=== PATIENT | female | born 1985 | race Caucasian/White ===

== ENCOUNTER 2016-08-22 08:35 | Emergency (ER) | payer BC, OTHER ==
[2016-08-22 08:40] VITALS: BP 120/66; PULSE 90; TEMP 98.8; BMI 22.4
--- NOTE | 2016-08-22 08:56 | PDOC ---
History of Present Illness - General History Source: Patient Exam Limitations: No Limitations - History of Present Illness Initial Comments: CHIEF COMPLAINT: 30 y/o afebrile female with no significant PMH c/o left upper back pain that started at the gym yesterday. HISTORY OF PRESENT ILLNESS: The patient states the pain started while she was on the stair master. She does admit that she works out 6 times per week. She was not lifting weights yesterday. She thought it was gas. She states the pain is worse with deep inspiration. She has not taken anything for the pain. She denies f/c, cough, hemoptysis, n/v/d, SOB, abd pain, low back pain, dizziness, smoking history, recent travel, control use, calf pain, trauma to back. Vital signs on arrival are within normal limits. REVIEW OF SYSTEMS: GENERAL/CONSTITUTIONAL: No fever/chills. No weakness. No weight change. HEAD, EYES, EARS, NOSE AND THROAT: No change in vision. No ear pain or discharge. No sore throat. CARDIOVASCULAR: No chest pain or shortness of breath. RESPIRATORY: No cough, wheezing, or hemoptysis. GASTROINTESTINAL: No abd pain, nausea, vomiting, diarrhea. GENITOURINARY: No dysuria, frequency, or change in urination. MUSCULOSKELETAL: No joint or muscle swelling or pain. No neck pain. +left upper back pain with deep inspiration. SKIN: No rash or easy bruising. PHYSICAL EXAM: GENERAL: The patient is awake, alert, and fully oriented, in no acute distress. She is very well appearing, ambulatory, in NAD or obvious discomfort. HEAD: Normal with no signs of trauma. ENT: Pupils equal, round and reactive to light, extraocular movements intact, sclera anicteric, conjunctiva clear. Neck supple. LUNGS: Clear to auscultation bilaterally. Normal excursion. No respiratory distress or use of accessory muscles. CV: RRR, S1/S2, no MRG. Cap refill < 2 sec. CHEST WALL: Reproducible pain with palpation of left posterior thoracic area at level of T6-7. The patient jumps off the bed when I touch that area. No crepitus, deformities or flail chest. ABDOMEN: Soft, non-distended, non-tender even to deep palpation, no hepatomegaly or splenomegaly, no masses. EXTREMITIES: Normal range of motion, no edema. NEUROLOGICAL: Normal speech, normal gait. CN II-XII grossly intact. PSYCH: Normal mood, normal affect. SKIN: Warm, dry, normal turgor, no rashes or lesions noted. <Viv Chaparro - Last Filed: 08/22/16 16:24> <Max Clancy - Last Filed: 08/23/16 09:51> - General Chief Complaint: Pain Stated Complaint: BACK PAIN, SOB Time Seen by Provider: 08/22/16 08:54 Past History - Past Medical History Other medical history: NONE - Psycho/Social/Smoking Cessation Hx Anxiety: No Suicidal Ideation: No Smoking History: Never smoked Hx Alcohol Use: Yes (SOCIAL) Drug/Substance Use Hx: No <Viv Chaparro - Last Filed: 08/22/16 16:24> <Max Clancy - Last Filed: 08/23/16 09:51> - Past Medical History Allergies/Adverse Reactions: Allergies Allergy/AdvReac Type Severity Reaction Status Date / Time No Known Allergies Allergy Verified 08/22/16 08:40 Home Medications: Ambulatory Orders NK [No Known Home Medication] 08/22/16 *Physical Exam - Vital Signs Last Vital Signs Temp Pulse Resp BP Pulse Ox 98.8 F 90 20 120/66 100 08/22/16 08:37 08/22/16 08:37 08/22/16 08:37 08/22/16 08:37 08/22/16 08:37 <Viv Chaparro - Last Filed: 08/22/16 16:24> - Vital Signs Last Vital Signs Temp Pulse Resp BP Pulse Ox 98.8 F 90 20 120/66 100 08/22/16 08:37 08/22/16 08:37 08/22/16 08:37 08/22/16 08:37 08/22/16 08:37 <Max Clancy - Last Filed: 08/23/16 09:51> Medical Decision Making - Medical Decision Making A/P: 30 y/o afebrile female with costochondritis. Plan is as follows: 1. hcg 2. CXR 3. Toradol Very low suspicion for PE as the patient is not tachycardic, not hypoxic and has no risk factors - she is not on control, has had no recent travel and does not smoke. The patient decided she does not want to wait for results and would like to sign out AMA. The patient ambulates without difficulty out of the emergency department. She is alert and oriented and of sound decision making capacity. She leaves AGAINST MEDICAL ADVICE. AMA-AGAINST MEDICAL ADVICE The patient is a 30-year-old female who wants to leave the [facility] Emergency Department before assessment, diagnosis and treatment are completed. The patient has been counseled in regard to the benefits of remaining for treatment and the risks of leaving before medical evaluation and care are provided. These risks are many and include failure to diagnose the condition, failure to provide needed treatment, and a failure to obtain needed specialty care as required. The patient has been informed that failure to complete needed diagnosis and treatment may result in pain, worsening of any medical conditions, possible permanent disability, and . Despite receiving detailed information regarding the benefits of completing care as well as the risks of leaving, the patient has elected to leave. An AMA form was completed. The patient has been told that they are welcome to return to the emergency department at any time should their condition worsen or if they have change their mind. <Viv Chaparro - Last Filed: 08/22/16 16:24> - Medical Decision Making The patient was seen and evaluated in conjunction with AMY Chaparro under my direct supervision, ancillary studies were reviewed. I agree with the plan as outlined by AMY Chaparro . <Max Clancy - Last Filed: 08/23/16 09:51> *DC/Admit/Observation/Transfer <Viv Chaparro - Last Filed: 08/22/16 16:24> <Max Clancy - Last Filed: 08/23/16 09:51> Diagnosis at time of Disposition: AMA - Signed out against medical advice - Discharge Dispostion Disposition: AGAINST MEDICAL ADVICE Condition at time of disposition: Good
== END 2016-08-22 10:01 | disposition left against medical advice (07) ==
LOC: EDSEX → JER 08:35
DX: M94.0 Chondrocostal junction syndrome [Tietze] (principal); X50.0XXA Overexertion from strenuous movement or load, initial encounter; Y93.B1 Activity, exercise machines primarily for muscle strengthening; Y92.39 Other specified sports and athletic area as the place of occurrence of the external cause; Y99.8 Other external cause status
CPT/HCPCS: 99282-25